=== PATIENT | female | born 2000 | race Caucasian/White ===

== ENCOUNTER 2022-02-23 07:05 | Emergency (ER) | payer OTHER ==
[~2022-02-23] VITALS: Ht 180 cm; Wt 165.0 kg
[2022-02-23 07:49] LABS: BASOPHILS # (AUTO) 0.1 10^3/uL (0.0-0.1); BASOPHILS % (AUTO) 1 % (0-10); EOSINOPHILS # (AUTO) 0.2 10^3/uL (0.0-0.3); EOSINOPHILS % (AUTO) 2 % (0-10); HEMATOCRIT 39 % (35-52); LYMPHOCYTES # (AUTO) 2.2 10^3/uL (1.0-4.0); LYMPHOCYTES % (AUTO) 22 % (12-44); MEAN CORPUSCULAR HEMOGLOBIN 25 pg (25-34); MEAN CORPUSCULAR HGB CONC 31 g/dL (32-36); MEAN CORPUSCULAR VOLUME 81 fL (80-99); MEAN PLATELET VOLUME 9.6 fL (9.0-12.2); MONOCYTES % (AUTO) 10 % (0-12); NEUTROPHILS # (AUTO) 6.6 10^3/uL (1.8-7.8); NEUTROPHILS % (AUTO) 65 % (42-75); PLATELET COUNT 348 10^3/uL (130-400); WHITE BLOOD COUNT 10.1 10^3/uL (4.3-11.0)
[2022-02-23 07:52] LABS: BILIRUBIN,URINE NEGATIVE (NEGATIVE); CLARITY,URINE CLEAR; COLOR,URINE YELLOW; GLUCOSE, URINE (UA) NEGATIVE (NEGATIVE); KETONES,URINE NEGATIVE (NEGATIVE); LEUKOCYTE ESTERASE ,URINE 1+ (NEGATIVE); NITRITE,URINE POSITIVE (NEGATIVE); PH,URINE 5.5 (5-9); PROTEIN,URINE TRACE (NEGATIVE)
[2022-02-23 07:55] LABS: ALBUMIN 4.1 GM/DL (3.2-4.5)
[2022-02-23 07:56] LABS: CALCIUM 9.3 MG/DL (8.5-10.1)
[2022-02-23 07:57] LABS: TOTAL PROTEIN 7.2 GM/DL (6.4-8.2)
[2022-02-23 07:59] LABS: BILIRUBIN,TOTAL 0.2 MG/DL (0.1-1.0)
[2022-02-23] MEDS ORDERED: KETOROLAC 30 MG/ML VIAL IVP ONE (08:00)
[2022-02-23] MEDS ORDERED: ONDANSETRON 4 MG/2 ML (SDV) Z0FRAN IVP ONE (08:00)
[2022-02-23 08:01] LABS: CREATININE SERUM 0.72 MG/DL (0.60-1.30)
[2022-02-23 08:13] LABS: BACTERIA,URINE MODERATE /HPF
[2022-02-23] MEDS ORDERED: cefTRIAXone 1 GM PRE-MIX 50 ML IV STA (08:18)
[2022-02-23] MEDS ORDERED: LACTATED RINGERS 1,000 ML IV ONE (08:30)
--- NOTE | 2022-02-23 08:46 | Diagnostic Imaging Report ---
EXAMINATION: CT abdomen and pelvis without contrast. TECHNIQUE: Multiple contiguous axial images were obtained through the abdomen and pelvis without the use of intravenous contrast. All CT scans use one or more of the following dose optimizing techniques: automated exposure control, MA and/or KvP adjustment based on patient size and exam type or iterative reconstruction. HISTORY: Flank pain, kidney stone suspected. COMPARISON: None available. FINDINGS: Limited views of the lower thorax are unremarkable. The liver is normal without focal lesion. There is no biliary ductal dilation. Gallbladder is normal. Pancreas is normal. Spleen is normal. Adrenal glands are normal. The kidneys are normal. There is no hydronephrosis. Urinary bladder is normal. There are no renal or ureteral stones. An intrauterine device is malpositioned in the lower uterine segment and extending into the cervix. Bowel is normal in caliber without obstruction or inflammation. No free fluid or air. No abdominal or pelvic lymphadenopathy. Aorta is normal in caliber without aneurysm. There are no suspicious osseus lesions. IMPRESSION: 1. No renal or ureteral stones. 2. Malpositioned intrauterine device in the lower uterine segment extending into the cervix. Dictated by: Dictated on workstation # [id number]
[2022-02-23] MEDS ORDERED: morphine INJ 10 MG/ML 1ML (SYR OR VIAL) IVP STA (08:50)
--- NOTE | 2022-02-23 08:57 | ED General ---
General Chief Complaint: Back Problems Stated Complaint: BACK PAIN Nursing Triage Note: PT AMB TO RM 06 W CO OF SUDDEN ONSET L FLANK PAIN 10/10. Source of Information: Patient Exam Limitations: No Limitations History of Present Illness Date Seen by Provider: Feb 23, 2022 Time Seen by Provider: 07:40 Initial Comments This 22-year-old young lady presents to the emergency room with complaints of pain in the left lower back and flank since last night. She took ibuprofen 600 mg at 0100 without significant relief. She reports her pain is 8/10 at rest and 10/10 with movement. She denies any injury. She has not noticed any urinary changes. She has had some associated nausea. LMP was February 06. She has history of nonalcoholic fatty liver disease but is otherwise relatively healthy. No history of kidney stones. Allergies and Home Medications Allergies Coded Allergies: No Known Drug Allergies (Unverified , 02/23/22) Patient Home Medication List Home Medication List Reviewed: Yes Cefdinir (Cefdinir) 300 Mg Capsule, 300 MG PO BID Prescribed by: ELMA TREJO on 02/23/22 0859 Hydrocodone/Acetaminophen (Hydrocodone-Acetamin 5-325 mg) 5 Mg-325 Mg Tablet, 1 TAB PO Q4H PRN for PAIN-MODERATE (5-7) Prescribed by: ELMA TREJO on 02/23/22 0900 Ondansetron (Ondansetron Odt) 4 Mg Tab.rapdis, 4 MG SL Q4H PRN for NAUSEA/VOMITING Prescribed by: ELMA TREJO on 02/23/22 0859 Review of Systems Review of Systems Constitutional: no symptoms reported EENTM: no symptoms reported Respiratory: no symptoms reported Cardiovascular: no symptoms reported Gastrointestinal: see HPI Genitourinary: no symptoms reported : No LMP: Feb 06, 2022 Musculoskeletal: no symptoms reported Skin: no symptoms reported Psychiatric/Neurological: No Symptoms Reported Hematologic/Lymphatic: No Symptoms Reported Immunological/Allergic: no symptoms reported Past Pdblday-Ftkynf-Izzlki Hx Patient Social History Tobacco Use?: Yes Tobacco type used: Cigarettes Smoking Status: Current Someday Smoker Substance use?: Yes Substance type: Marijuana Substance frequency: Once in a while Alcohol Use?: Yes Alcohol type: Beer Alcohol Frequency: Once in a while Pt feels they are or have been: No Past Medical History Surgery/Hospitalization HX: APPY Surgeries: Yes Appendectomy Respiratory: No Cardiac: No Neurological: No : No Last Menstrual Period: Feb 06, 2022 Reproductive Disorders: No Genitourinary: No Gastrointestinal: Yes Liver Disease/Jaundice (Nonalcoholic fatty liver disease) Musculoskeletal: No Endocrine: No HEENT: No Cancer: No Psychosocial: No Physical Exam Vital Signs Vital Signs - First Documented 02/23/22 07:15 Temp 36.3 Pulse 80 Resp 18 B/P (MAP) 166/94 (118) Pulse Ox 98 Capillary Refill : Less Than 3 Seconds Height, Weight, BMI Height: '" Weight: lbs. oz. kg; 50.00 BMI Method: General Appearance: No Apparent Distress, WD/WN, Obese HEENT: PERRL/EOMI, Normal ENT Inspection Neck: Normal Inspection Respiratory: Lungs Clear, Normal Breath Sounds, No Accessory Muscle Use Cardiovascular: Regular Rate, Rhythm, No Edema, No Murmur Gastrointestinal: Normal Bowel Sounds, Non Tender, Soft; No Distended Back: Normal Inspection, Other (Mild tenderness to palpation in the left lateral lower back and flank) Extremity: Normal Inspection, No Pedal Edema Neurologic/Psychiatric: Alert, Oriented x3, No Motor/Sensory Deficits, Normal Mood/Affect Skin: Normal Color, Warm/Dry Progress/Results/Core Measures Suspected Sepsis SIRS Temperature: Pulse: 80 Respiratory Rate: 18 Laboratory Tests 02/23/22 07:25: White Blood Count 10.1 Blood Pressure 166 /94 Mean: 118 Laboratory Tests 02/23/22 07:25: Creatinine 0.72, Platelet Count 348, Total Bilirubin 0.2 Results/Orders Lab Results Laboratory Tests Test 02/23/22 07:25 02/23/22 07:40 Range/Units White Blood Count 10.1 4.3-11.0 10^3/uL Red Blood Count 4.77 3.80-5.11 10^6/uL Hemoglobin 12.0 11.5-16.0 g/dL Hematocrit 39 35-52 % Mean Corpuscular Volume 81 80-99 fL Mean Corpuscular Hemoglobin 25 25-34 pg Mean Corpuscular Hemoglobin Concent 31 L 32-36 g/dL Red Cell Distribution Width 14.9 H 10.0-14.5 % Platelet Count 348 130-400 10^3/uL Mean Platelet Volume 9.6 9.0-12.2 fL Immature Granulocyte % (Auto) 0 % Neutrophils (%) (Auto) 65 42-75 % Lymphocytes (%) (Auto) 22 12-44 % Monocytes (%) (Auto) 10 0-12 % Eosinophils (%) (Auto) 2 0-10 % Basophils (%) (Auto) 1 0-10 % Neutrophils # (Auto) 6.6 1.8-7.8 10^3/uL Lymphocytes # (Auto) 2.2 1.0-4.0 10^3/uL Monocytes # (Auto) 1.0 0.0-1.0 10^3/uL Eosinophils # (Auto) 0.2 0.0-0.3 10^3/uL Basophils # (Auto) 0.1 0.0-0.1 10^3/uL Immature Granulocyte # (Auto) 0.0 0.0-0.1 10^3/uL Sodium Level 139 135-145 MMOL/L Potassium Level 4.0 3.6-5.0 MMOL/L Chloride Level 106 98-107 MMOL/L Carbon Dioxide Level 21 21-32 MMOL/L Anion Gap 12 5-14 MMOL/L Blood Urea Nitrogen 9 7-18 MG/DL Creatinine 0.72 0.60-1.30 MG/DL Estimat Glomerular Filtration Rate 122 BUN/Creatinine Ratio 13 Glucose Level 100 70-105 MG/DL Calcium Level 9.3 8.5-10.1 MG/DL Corrected Calcium 9.2 8.5-10.1 MG/DL Total Bilirubin 0.2 0.1-1.0 MG/DL Aspartate Amino Transf (AST/SGOT) 14 5-34 U/L Alanine Aminotransferase (ALT/SGPT) 26 0-55 U/L Alkaline Phosphatase 75 40-136 U/L C-Reactive Protein High Sensitivity 0.67 H 0.00-0.50 MG/DL Total Protein 7.2 6.4-8.2 GM/DL Albumin 4.1 3.2-4.5 GM/DL Lipase 15 8-78 U/L Serum Test, Qualitative NEGATIVE NEGATIVE Urine Color YELLOW Urine Clarity CLEAR Urine pH 5.5 5-9 Urine Specific [place] >=1.030 1.016-1.022 Urine Protein TRACE H NEGATIVE Urine Glucose (UA) NEGATIVE NEGATIVE Urine Ketones NEGATIVE NEGATIVE Urine Nitrite POSITIVE H NEGATIVE Urine Bilirubin NEGATIVE NEGATIVE Urine Urobilinogen 0.2 < = 1.0 MG/DL Urine Leukocyte Esterase 1+ H NEGATIVE Urine RBC (Auto) 3+ H NEGATIVE Urine RBC 5-10 H /HPF Urine WBC 10-25 H /HPF Urine Squamous Epithelial Cells 2-5 /HPF Urine Crystals NONE /LPF Urine Bacteria MODERATE H /HPF Urine Casts NONE /LPF Urine Mucus NEGATIVE /LPF Urine Culture Indicated YES My Orders Orders - ELMA DAVE MD Cbc With Automated Diff (02/23/22 07:41) Comprehensive Metabolic Panel (02/23/22 07:41) Hcg,Qualitative Serum (02/23/22 07:41) Ua Culture If Indicated (02/23/22 07:41) Ed Iv/Invasive Line Start (02/23/22 07:41) Ketorolac Injection (Toradol Injection) (02/23/22 08:00) Ondansetron Injection (Zofran Injectio (02/23/22 08:00) Hs C Reactive Protein (02/23/22 07:52) Lipase (02/23/22 07:52) Urine Culture (02/23/22 07:40) Ceftriaxone 1 Gm Pre-Mix (Rocephin 1 Gm (02/23/22 08:18) Lactated Ringers (Lr 1000 Ml Iv Solution (02/23/22 08:30) Ct Abd/Pelvis Wo(Kidney Stone) (02/23/22 08:19) Morphine Injection (Morphine Injection (02/23/22 08:50) Medications Given in ED Vital Signs/I&O 02/23/22 02/23/22 07:15 10:03 Temp 36.3 Pulse 80 68 Resp 18 18 B/P (MAP) 166/94 (118) 142/80 Pulse Ox 98 98 Capillary Refill : Less Than 3 Seconds Blood Pressure Mean: 118 Progress Note : Progress Note Nausea was treated with Zofran. Toradol had little effect on her pain. Morphine was given as a secondary pain medication. Urine demonstrated evidence of pyuria along with microscopic hematuria. Given the nature of her pain, there is concern about urinary tract infection associated with ureteral stone. CT scan was recommended. Patient elected to proceed with CT scan after discussing risks and benefits. CT revealed no acute abnormalities to explain her pain. Patient was treated for UTI with Rocephin and discharged with prescriptions. See discharge instructions for further discussion. Diagnostic Imaging Diagonstic Imaging: CT Plain Films/CT/US/NM/MRI: abdomen, pelvis Comments CT abdomen and pelvis viewed by me and report reviewed. See report below: NAME: ZENAIDA DUFF [facility] REC#: [id number] PT STATUS: REG ER : 2001 PHYSICIAN: ELMA DAVE MD ADMIT DATE: 02/23/22/ER Draft Date of Exam:02/23/22 CT ABD/PELVIS WO(KIDNEY STONE) EXAMINATION: CT abdomen and pelvis without contrast. TECHNIQUE: Multiple contiguous axial images were obtained through the abdomen and pelvis without the use of intravenous contrast. All CT scans use one or more of the following dose optimizing techniques: automated exposure control, MA and/or KvP adjustment based on patient size and exam type or iterative reconstruction. HISTORY: Flank pain, kidney stone suspected. COMPARISON: None available. FINDINGS: Limited views of the lower thorax are unremarkable. The liver is normal without focal lesion. There is no biliary ductal dilation. Gallbladder is normal. Pancreas is normal. Spleen is normal. Adrenal glands are normal. The kidneys are normal. There is no hydronephrosis. Urinary bladder is normal. There are no renal or ureteral stones. An intrauterine device is malpositioned in the lower uterine segment and extending into the cervix. Bowel is normal in caliber without obstruction or inflammation. No free fluid or air. No abdominal or pelvic lymphadenopathy. Aorta is normal in caliber without aneurysm. There are no suspicious osseus lesions. IMPRESSION: 1. No renal or ureteral stones. 2. Malpositioned intrauterine device in the lower uterine segment extending into the cervix. Dictated on workstation # [id number] Dict: 02/23/22 0839 Trans: 02/23/22 0845 [id number] Interpreted by: REBEL THOMPSON MD Departure Impression Primary Impression: Urinary tract infection Qualified Codes: N39.0 - Urinary tract infection, site not specified Additional Impressions: Low back pain Qualified Codes: M54.50 - Low back pain, unspecified Malpositioned intrauterine device Qualified Codes: T83.32XA - Displacement of intrauterine contraceptive device, initial encounter Disposition: 01 HOME, SELF-CARE Condition: Improved Departure-Patient Inst. Decision time for Depature: 08:53 Referrals: NO,LOCAL PHYSICIAN (PCP/Family) Primary Care Physician Patient Instructions: Low Back Pain ED, Urinary Tract Infection, Adult ED Add. Discharge Instructions: Drink plenty of clear liquids to stay well-hydrated. Start your antibiotics within 24 hours and complete the entire course as pre scribed. Use ibuprofen up to 600 mg every 6 hours as needed for primary pain control. Add hydrocodone as prescribed for pain not controlled by ibuprofen. Use Zofran (ondansetron) as prescribed for nausea and vomiting. Follow-up with your primary care provider soon as possible. Review urine culture results with your primary care provider. This should be resulted by end of the day on February 25. Your IUD appears malpositioned on the CT scan and appears to be moving into the cervix. For this reason you should use an alternative form of control until this can be evaluated by your women's health provider. Return to the emergency room if you have worsening condition despite following these instructions or if you develop new symptoms such as fever, vomiting, etc. All discharge instructions reviewed with patient and/or family. Voiced understanding. Scripts Hydrocodone/Acetaminophen (Hydrocodone-Acetamin 5-325 mg) 5 Mg-325 Mg Tablet 1 TAB PO Q4H PRN for PAIN-MODERATE (5-7), #8 TAB Prov: ELMA DAVE MD 02/23/22 Cefdinir (Cefdinir) 300 Mg Capsule 300 MG PO BID, #14 CAP 0 Refills Prov: ELMA DAVE MD 02/23/22 Ondansetron (Ondansetron Odt) 4 Mg Tab.rapdis 4 MG SL Q4H PRN for NAUSEA/VOMITING, #10 TAB Prov: ELMA DAVE MD 02/23/22 ELMA DAVE MD Feb 23, 2022 08:57
[2022-02-23] MEDS ORDERED: ACHD5005 PO (08:59)
[2022-02-23] MEDS ORDERED: ONDA4TAB11 SL (08:59)
[2022-02-23] MEDS ORDERED: CEFD300C3 PO (08:59)
[2022-02-23 10:03] VITALS: BP 142/80
== END 2022-02-23 10:04 | disposition home or self-care (01) ==
LOC: ER 07:09
DX: N39.0 Urinary tract infection, site not specified (principal); M54.50 Low back pain, unspecified; T83.32XA Displacement of intrauterine contraceptive device, initial encounter; E66.9 Obesity, unspecified; F17.210 Nicotine dependence, cigarettes, uncomplicated; Z68.43 Body mass index [BMI] 50.0-59.9, adult
CPT/HCPCS: 36415; 74176; 80053; 81000; 83690; 84703; 85025; 86141; 87077; 87088; 87186

== ENCOUNTER 2022-02-26 16:01 | Emergency (ER) | payer OTHER ==
[~2022-02-26] VITALS: Ht 180 cm; Wt 165.6 kg
[~2022-02-26 16:01] MED LIST: ACHD5005 PO; CEFD300C3 PO; ONDA4TAB11 SL
[2022-02-26 17:01] LABS: BILIRUBIN,URINE NEGATIVE (NEGATIVE); CLARITY,URINE CLEAR; COLOR,URINE YELLOW; GLUCOSE, URINE (UA) NEGATIVE (NEGATIVE); KETONES,URINE NEGATIVE (NEGATIVE); LEUKOCYTE ESTERASE ,URINE NEGATIVE (NEGATIVE); NITRITE,URINE NEGATIVE (NEGATIVE); PROTEIN,URINE NEGATIVE (NEGATIVE)
[2022-02-26 17:31] LABS: BACTERIA,URINE FEW /HPF; RBC,URINE RARE /HPF; WBC,URINE 0-2 /HPF
[2022-02-26 18:57] LABS: BASOPHILS % (AUTO) 1 % (0-10); EOSINOPHILS # (AUTO) 0.1 10^3/uL (0.0-0.3); EOSINOPHILS % (AUTO) 2 % (0-10); HEMATOCRIT 39 % (35-52); HEMOGLOBIN 12.3 g/dL (11.5-16.0); LYMPHOCYTES # (AUTO) 1.9 10^3/uL (1.0-4.0); LYMPHOCYTES % (AUTO) 29 % (12-44); MEAN CORPUSCULAR HEMOGLOBIN 25 pg (25-34); MEAN CORPUSCULAR HGB CONC 31 g/dL (32-36); MEAN CORPUSCULAR VOLUME 79 fL (80-99); MEAN PLATELET VOLUME 9.6 fL (9.0-12.2); MONOCYTES # (AUTO) 0.4 10^3/uL (0.0-1.0); MONOCYTES % (AUTO) 6 % (0-12); NEUTROPHILS # (AUTO) 4.1 10^3/uL (1.8-7.8); NEUTROPHILS % (AUTO) 62 % (42-75); PLATELET COUNT 371 10^3/uL (130-400); WHITE BLOOD COUNT 6.5 10^3/uL (4.3-11.0)
--- NOTE | 2022-02-26 18:59 | ED Abdominal Pain ---
General Chief Complaint: - Reproductive Stated Complaint: L SIDE LOWER BACK PAIN/VOMITING Nursing Triage Note: PT AMBULATE TO ROOM 06 WITH C/O BACK PAIN RELATED TO A UTI. PT REPORTS BEING SEEN IN THIS ED AND DX WITH UTI AND GIVEN ABX. PT STATES SHE IS NOT FEELING BETTER. (YAZMIN STEVENSON MED STUDENT) History of Present Illness Date Seen by Provider: Feb 26, 2022 Time Seen by Provider: 18:28 Initial Comments Zenaida is a 22 y/o F with PMHx of NAFLD returns to the ED after being discharged 2 days ago for UTI for continuing symptoms. Patient states symptoms onset with L flank pain and nausea for which she presented and was worked up with a benign CT, negative labwork and urine consistent with UTI. Patient was discharged on abx and pain control which she states has not helped at all. She states pain has now worsened and radiates to her R side as well as episodic vomiting over the last day. Reports an episode of syncope while walking into her bedroom after using the bathroom, noting some preceding dizziness but unsure when the episode occurred; states she was awoken by her boyfriend around 1 hour ago. Patient denies any SOB, changes in urination, discharge, fever, diarrhea, constipation, vision changes or weakness. (YAZMIN STEVENSON MED STUDENT) Initial Comments No fevers or chills. She has not been able to tolerate her hydrocodone because of her vomiting. She does not have any of her nausea. No other sick contacts. She had her appendix out but no other abdominal surgeries. She does not her primary care provider to follow-up with. No EGD or colonoscopy. Stools are normal, last stooling was today. (TRINIDAD CARPENTER) Allergies and Home Medications Allergies Coded Allergies: No Known Drug Allergies (Unverified , 02/23/22) Patient Home Medication List Home Medication List Reviewed: Yes (TRINIDAD CARPENTER) Cefdinir (Cefdinir) 300 Mg Capsule, 300 MG PO BID Prescribed by: ELMA TREJO on 02/23/22 0859 Hydrocodone/Acetaminophen (Hydrocodone-Acetamin 5-325 mg) 5 Mg-325 Mg Tablet, 1 TAB PO Q4H PRN for PAIN-MODERATE (5-7) Prescribed by: ELMA TREJO on 02/23/22 0900 Ondansetron (Ondansetron Odt) 4 Mg Tab.rapdis, 4 MG SL Q4H PRN for NAUSEA/VOMITING Prescribed by: ELMA TREJO on 02/23/22 0881 Ondansetron (Ondansetron Odt) 4 Mg Tab.rapdis, 4-8 MG PO Q6H PRN for NAUSEA/VOMITING Prescribed by: TRINIDAD CARPENTER on 02/26/22 0308 Review of Systems Review of Systems Constitutional: dizziness (resolved); No fever EENTM: No Blurred Vision, No Double Vision Respiratory: Denies Cough, Denies Shortness of Air Cardiovascular: Lightheadedness, Syncope Gastrointestinal: Abdominal Pain (generalized, mild); Denies Constipated, Denies Diarrhea; Nausea, Vomiting Genitourinary: Denies Burning, Denies Discharge; Flank Pain (L side) Musculoskeletal: No joint pain, No joint swelling Skin: No change in color, No dryness Psychiatric/Neurological: Denies Anxiety, Denies Depressed Endocrine: Denies Excessive Sweating, Denies Flushing (YAZMIN STEVENSON STUDENT) All Other Systems Reviewed Negative Unless Noted: Yes (TRINIDAD CARPENTER) Past Ixqdxlz-Stukzj-Vronvq Hx Patient Social History Tobacco Use?: No Smoking Status: Never a Smoker Smokeless Tobacco Frequency: Never a User Use of E-Cig and/or Vaping dev: Yes E-Cig or Vaping type used: Marijuana Use of E-Cig and/or Vaping Eric: Light User Substance use?: No Alcohol Use?: No Pt feels they are or have been: No (YAZMIN STEVENSON STUDENT) Tobacco Use?: No Use of E-Cig and/or Vaping dev: Yes E-Cig or Vaping type used: Nicotine Substance use?: No Alcohol Use?: Yes Alcohol type: Beer Alcohol Frequency: Rarely (TRINIDAD CARPENTER) Immunizations Up To Date First/Initial COVID19 Vaccinat: 06/18/21 Second COVID19 Vaccination Peter: 07/10/21 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: [employer] (YAZMIN STEVENSON STUDENT) Past Medical History Surgery/Hospitalization HX: APPY Surgeries: Yes Appendectomy Respiratory: No Cardiac: No Neurological: No Reproductive Disorders: No Genitourinary: No Gastrointestinal: Yes Liver Disease/Jaundice Musculoskeletal: No Endocrine: No HEENT: No Cancer: No Psychosocial: No (GRAHAM,YAZMIN [employer] STUDENT) Physical Exam Vital Signs Vital Signs - First Documented 02/26/22 02/26/22 16:19 19:00 Temp 36.2 Pulse 75 Resp 15 B/P (MAP) 148/91 (110) Pulse Ox 99 O2 Delivery Room Air (TRINIDAD CARPENTER) Vital Signs Capillary Refill : Less Than 3 Seconds (GRAHAM,YAZMIN MED STUDENT) Height/Weight/BMI Height: '" Weight: lbs. oz. kg; 51.00 BMI Method: General Appearance: WD/WN, obese HEENT: PERRL/EOMI, normal ENT inspection; No photophobia, No pharyngeal erythema Neck: non-tender, full range of motion Respiratory: chest non-tender, lungs clear, normal breath sounds, no respiratory distress, no accessory muscle use Cardiovascular: normal peripheral pulses, regular rate, rhythm, no murmur Peripheral Pulses: 2+ Carotid (R), 2+ Carotid (L), 2+ Radial Pulses (R), 2+ Radial Pulses (L) Gastrointestinal: normal bowel sounds, soft, no pulsatile mass; No guarding, No rebound; tenderness (mild, generalized) Extremities: normal range of motion, non-tender, normal inspection, no pedal edema, no calf tenderness Back: normal inspection, CVA tenderness (L) 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 as tested, no motor/sensory deficits, normal mood/affect; No aphasia, No EOM palsy, No facial droop, No motor weakness, No sensory deficit Skin: normal color, warm/dry (YAZMIN STEVENSON MED STUDENT) Skin: other (No left flank rash) (TRINIDAD CARPENTER) Progress/Results/Core Measures Results/Orders Lab Results Laboratory Tests Test 02/26/22 16:51 02/26/22 18:47 Range/Units Urine Color YELLOW Urine Clarity CLEAR Urine pH 8.0 5-9 Urine Specific [place] 1.020 1.016-1.022 Urine Protein NEGATIVE NEGATIVE Urine Glucose (UA) NEGATIVE NEGATIVE Urine Ketones NEGATIVE NEGATIVE Urine Nitrite NEGATIVE NEGATIVE Urine Bilirubin NEGATIVE NEGATIVE Urine Urobilinogen 0.2 < = 1.0 MG/DL Urine Leukocyte Esterase NEGATIVE NEGATIVE Urine RBC (Auto) NEGATIVE NEGATIVE Urine RBC RARE /HPF Urine WBC 0-2 /HPF Urine Squamous Epithelial Cells 2-5 /HPF Urine Crystals NONE /LPF Urine Bacteria FEW H /HPF Urine Casts NONE /LPF Urine Mucus SMALL H /LPF Urine Culture Indicated YES White Blood Count 6.5 4.3-11.0 10^3/uL Red Blood Count 4.95 3.80-5.11 10^6/uL Hemoglobin 12.3 11.5-16.0 g/dL Hematocrit 39 35-52 % Mean Corpuscular Volume 79 L 80-99 fL Mean Corpuscular Hemoglobin 25 25-34 pg Mean Corpuscular Hemoglobin Concent 31 L 32-36 g/dL Red Cell Distribution Width 14.6 H 10.0-14.5 % Platelet Count 371 130-400 10^3/uL Mean Platelet Volume 9.6 9.0-12.2 fL Immature Granulocyte % (Auto) 0 % Neutrophils (%) (Auto) 62 42-75 % Lymphocytes (%) (Auto) 29 12-44 % Monocytes (%) (Auto) 6 0-12 % Eosinophils (%) (Auto) 2 0-10 % Basophils (%) (Auto) 1 0-10 % Neutrophils # (Auto) 4.1 1.8-7.8 10^3/uL Lymphocytes # (Auto) 1.9 1.0-4.0 10^3/uL Monocytes # (Auto) 0.4 0.0-1.0 10^3/uL Eosinophils # (Auto) 0.1 0.0-0.3 10^3/uL Basophils # (Auto) 0.0 0.0-0.1 10^3/uL Immature Granulocyte # (Auto) 0.0 0.0-0.1 10^3/uL Sodium Level 136 135-145 MMOL/L Potassium Level 4.1 3.6-5.0 MMOL/L Chloride Level 105 98-107 MMOL/L Carbon Dioxide Level 22 21-32 MMOL/L Anion Gap 9 5-14 MMOL/L Blood Urea Nitrogen 8 7-18 MG/DL Creatinine 0.70 0.60-1.30 MG/DL Estimat Glomerular Filtration Rate 126 BUN/Creatinine Ratio 11 Glucose Level 92 70-105 MG/DL Calcium Level 9.8 8.5-10.1 MG/DL Corrected Calcium 9.6 8.5-10.1 MG/DL Total Bilirubin 0.3 0.1-1.0 MG/DL Aspartate Amino Transf (AST/SGOT) 16 5-34 U/L Alanine Aminotransferase (ALT/SGPT) 21 0-55 U/L Alkaline Phosphatase 75 40-136 U/L Total Creatine Kinase 57 29-168 U/L Troponin I < 0.028 <0.028 NG/ML C-Reactive Protein High Sensitivity 0.48 0.00-0.50 MG/DL Total Protein 7.7 6.4-8.2 GM/DL Albumin 4.3 3.2-4.5 GM/DL Lipase 11 8-78 U/L (TRINIDAD CARPENTER) My Orders Orders - TRINIDAD CARPENTER Ekg Tracing (02/26/22 18:36) Orthostatic Vital Signs (Adult (02/26/22 18:36) Cbc With Automated Diff (02/26/22 18:36) Comprehensive Metabolic Panel (02/26/22 18:36) Hs C Reactive Protein (02/26/22 18:36) Troponin I Simran (02/26/22 18:36) Chest 1 View, Ap/Pa Only (02/26/22 18:36) Lipase (02/26/22 18:36) Ed Iv/Invasive Line Start (02/26/22 19:14) Lactated Ringers (Lr 1000 Ml Iv Solution (02/26/22 19:15) Ondansetron Injection (Zofran Injectio (02/26/22 19:15) Fentanyl Inj (Sublimaze Injection) (02/26/22 19:15) Pantoprazole Injection (Protonix Injecti (02/26/22 19:15) Creatine Kinase (02/26/22 19:14) Ct Abdomen/Pelvis W (02/26/22 19:20) Orthostatic Vital Signs (Adult (02/26/22 19:20) Iohexol Injection (Omnipaque 350 Mg/Ml 1 (02/26/22 19:45) Received Contrast (Hold Metformin- Contr (02/26/22 19:45) Ns (Ivpb) (Sodium Chloride 0.9% Ivpb Bag (02/26/22 19:45) (TRINIDAD CARPENTER) Medications Given in ED Current Medications Medications Dose Ordered Sig/Lulu Route Start Time Stop Time Status Last Admin Dose Admin Fentanyl Citrate 50 mcg ONCE ONCE IVP 02/26/22 19:15 02/26/22 19:16 DC 02/26/22 19:26 50 MCG Iohexol 100 ml ONCE ONCE IV 02/26/22 19:45 02/26/22 19:46 DC 02/26/22 19:36 100 ML Lactated Ringer's 1,000 ml @ 0 mls/hr Q0M ONCE IV 02/26/22 19:15 02/26/22 19:16 DC 02/26/22 19:27 0 MLS/HR Ondansetron HCl 8 mg ONCE ONCE IVP 02/26/22 19:15 02/26/22 19:16 DC 02/26/22 19:26 8 MG Pantoprazole 40 mg ONCE ONCE IV 02/26/22 19:15 02/26/22 19:16 DC 02/26/22 19:26 40 MG Sodium Chloride 100 ml ONCE ONCE IV 02/26/22 19:45 02/26/22 19:46 DC 02/26/22 19:36 80 ML (TRINIDAD CARPENTER) Vital Signs/I&O 02/26/22 02/26/22 02/26/22 16:19 19:00 22:03 Temp 36.2 36.5 Pulse 75 86 84 Resp 15 14 16 B/P (MAP) 148/91 (110) 162/90 154/90 Pulse Ox 99 99 O2 Delivery Room Air Room Air Room Air 02/27/22 00:00 Intake Total 1000 ml Balance 1000 ml (TRINIDAD CARPENTER) Blood Pressure Mean: 110 Progress Progress Note #1: Time: 19:18 Progress Note I attest that I saw this patient alongside the medical student and agree with his documented history, physical exam and review of systems except as otherwise noted. No evidence of shingles. She does have a Celaya's positive sign. We did review her previous CT which did not reveal any pathology other than a malpositioned IUD which is unlikely to be the source of her symptoms today. Her urinalysis was convincing of UTI from a couple days ago. It has cleared today despite antibiotics but her symptoms are not improved. We will get a CT with IV contrast to evaluate her gallbladder. Fentanyl and Zofran and a liter of fluids. Less likely would be a myocarditis or some other reason to explain her syncopal episode. Vasovagal due to gallbladder or similar symptoms as possible. Pantoprazole for possibility of PUD. Progress Note #2: Time: 21:53 Progress Note Patient is resting comfortably has no signs of distress and we have exhausted a work-up looking for emergent dangerous pathology. She has had normal telemetry on the monitor. We have suggested to her to follow-up with a dismantler for her syncopal work-up to consider a paroxysmal dysrhythmia as well as to establish care with a primary care doctor to help figure out if there is persistent pain even after she completes her antibiotics. (TRINIDAD CARPENTER) Initial ECG Impression Date: Feb 26, 2022 Initial ECG Impression Time: 18:53 Initial ECG Rate: 66 Initial ECG Rhythm: Normal Sinus Initial ECG Intervals: Normal Initial ECG Impression: Normal Comment Normal sinus rhythm without clinically relevant ST elevation or depression (TRINIDAD CARPENTER) Diagnostic Imaging Diagonstic Imaging: Xray Plain Films/CT/US/NM/MRI: chest Comments [facility] [place], [place] NAME: ZENAIDA DUFF MED REC#: [id number] PT STATUS: REG ER : 2000 PHYSICIAN: TRINIDAD CARPENTER MD ADMIT DATE: 02/26/22/ER Draft Date of Exam:02/26/22 CHEST 1 VIEW, AP/PA ONLY INDICATION: Back pain related to urinary tract infection.. TECHNIQUE: Single view chest 7:08 PM. CORRELATION STUDY: None FINDINGS: The heart size, mediastinal configuration and pulmonary vascularity are within normal limits. The lungs are clear with no consolidating infiltrate. There is no significant effusion or pneumothorax. IMPRESSION: 1. Negative appearing single view chest. Dictated on workstation # [id number] Dict: 02/26/221911 Trans: 02/26/221912 DO [id number] Interpreted by: MORRIS EARL DO Electronically signed by: Reviewed: Reviewed by Me Diagonstic Imaging: CT Plain Films/CT/US/NM/MRI: abdomen, pelvis Comments [facility] [place] [place] NAME: ZENAIDA DUFF MED REC#: [id number] PT STATUS: REG ER : 2000 PHYSICIAN: TRINIDAD CARPENTER MD ADMIT DATE: 02/26/22/ER Draft Date of Exam:02/26/22 CT ABDOMEN/PELVIS W PROCEDURE: CT abdomen and pelvis with contrast. TECHNIQUE: Multiple contiguous axial images were obtained through the abdomen and pelvis after administration of intravenous contrast. Auto Exposure Controls were utilized during the CT exam to meet ALARA standards for radiation dose reduction. All CT scans use one or more of the following dose optimizing techniques: automated exposure control, MA and/or KvP adjustment based on patient size and exam type or iterative reconstruction. INDICATION: 22-year-old female, back pain related to urinary tract infection. No improvement post antibiotic. CORRELATION STUDY: CT abdomen and pelvis 02/23/2022 FINDINGS: LOWER THORAX: Clear. LIVER: Borderline enlarged, 20 cm with mild fatty infiltration. GALLBLADDER: Present and unremarkable. No bile duct dilatation. SPLEEN: Borderline enlarged at approximately 20 cm in length. PANCREAS: Unremarkable. ADRENAL GLANDS: Unremarkable. KIDNEYS: Normal configuration. No calcification or obstruction. ABDOMINAL AORTA: Unremarkable, nonaneurysmal. Retroaortic left renal vein. A few shotty aortocaval lymph nodes. GASTROINTESTINAL TRACT: No obstruction or inflammation. There appears to be likely prior appendectomy. No abdominal ascites and/or free air. URINARY BLADDER: Unremarkable. REPRODUCTIVE: Intrauterine conceptive device is malpositioned, positioned in the lower uterine segment and extending into the cervix. Peripheral extension of the arms are also present. OSSEOUS STRUCTURES: No acute abnormality. OTHER: None. IMPRESSION: 1. Malpositioned intrauterine conceptive device, positioned in the lower uterine segment and cervix with peripheral extension of the limbs. 2. Kidneys, ureters and urinary bladder appearing unremarkable. 3. Mild hepatomegaly with borderline splenomegaly. Dictated on workstation # [id number] Dict: 02/26/221944 Trans: 02/26/222006 CHRIS [id number] Interpreted by: MORRIS EARL DO Electronically signed by: Reviewed: Reviewed by Me (TRINIDAD CARPENTER) Departure Impression Primary Impression: Syncope and collapse Additional Impressions: Abdominal pain Qualified Codes: R10.84 - Generalized abdominal pain Urinary tract infection Qualified Codes: N30.00 - Acute cystitis without hematuria Disposition: 01 HOME, SELF-CARE Condition: Stable Departure-Patient Inst. Decision time for Depature: 21:55 (TRINIDAD CARPENTER) Referrals: ARAMIS SHAFFER MD NO,LOCAL PHYSICIAN (PCP) Primary Care Physician Patient Instructions: Urinary Tract Infection, Adult (DC), Syncope (Fainting) (DC) Add. Discharge Instructions: You do have a bladder infection and perhaps that is the source of your pain as well as your passing out, syncope. Drink plenty of fluids over the next several days. Continue to take your antibiotics to completion. Tylenol, Motrin, topical creams, heating pads as necessary for pain. Hydrocodone may contribute to passing out. Zofran 1 tablet every 6 hours as needed for nausea or vomiting. If you continue to have passing out episodes then it would be bae to follow-up with the dismantler, Dr. Shaffer by calling for an appointment in the next 1 to 2 weeks. If you continue to have pain or issues despite finishing the antibiotics then you need to establish care with a primary care doctor to continue the work-up and look for the source of your symptoms. All discharge instructions reviewed with patient and/or family. Voiced understanding. Scripts Ondansetron (Ondansetron Odt) 4 Mg Tab.rapdis 4-8 MG PO Q6H PRN for NAUSEA/VOMITING, #16 TAB 0 Refills Prov: TRINIDAD CARPENTER 02/26/22 Copy Copies To 1: ARAMIS SHAFFER MD, MATTHEW MED STUDENT Feb 26, 2022 18:59 TRINIDAD CARPENTER Feb 26, 2022 19:20
--- NOTE | 2022-02-26 19:13 | Diagnostic Imaging Report ---
INDICATION: Back pain related to urinary tract infection.. TECHNIQUE: Single view chest 7:08 PM. CORRELATION STUDY: None FINDINGS: The heart size, mediastinal configuration and pulmonary vascularity are within normal limits. The lungs are clear with no consolidating infiltrate. There is no significant effusion or pneumothorax. IMPRESSION: 1. Negative appearing single view chest. Dictated by: Dictated on workstation # [id number]
[2022-02-26 19:14] LABS: ALANINE AMINOTRANSFERASE 21 U/L (0-55); ALBUMIN 4.3 GM/DL (3.2-4.5); ALKALINE PHOSPHATASE 75 U/L (40-136); BILIRUBIN,TOTAL 0.3 MG/DL (0.1-1.0); BUN/CREATININE RATIO 11; CALCIUM 9.8 MG/DL (8.5-10.1); CARBON DIOXIDE 22 MMOL/L (21-32); CHLORIDE 105 MMOL/L (98-107); GFR ESTIMATED 126; GLUCOSE 92 MG/DL (70-105); LIPASE 11 U/L (8-78); POTASSIUM 4.1 MMOL/L (3.6-5.0); SODIUM 136 MMOL/L (135-145); TOTAL PROTEIN 7.7 GM/DL (6.4-8.2)
[2022-02-26] MEDS ORDERED: ONDANSETRON 4 MG/2 ML (SDV) Z0FRAN IVP ONE (19:15)
[2022-02-26] MEDS ORDERED: LACTATED RINGERS 1,000 ML IV ONE (19:15)
[2022-02-26] MEDS ORDERED: PANTOPRAZOLE 40 MG (PROTONIX) VIAL IV ONE (19:15)
[2022-02-26] MEDS ORDERED: fentaNYL INJ 100 MCG/2 ML AMP IVP ONE (19:15)
[2022-02-26] MEDS ORDERED: NS 100 ML (IVPB) BAG IV ONE (19:45)
[2022-02-26] MEDS ORDERED: HOLD METFORMIN - RECEIVED CONTRAST 20 ML VIAL IV SCH (19:45)
[2022-02-26] MEDS ORDERED: IOHEXOL 350 MG/ML 100 ML (OMNIPAQUE 350) VIAL IV ONE (19:45)
--- NOTE | 2022-02-26 20:08 | Diagnostic Imaging Report ---
PROCEDURE: CT abdomen and pelvis with contrast. TECHNIQUE: Multiple contiguous axial images were obtained through the abdomen and pelvis after administration of intravenous contrast. Auto Exposure Controls were utilized during the CT exam to meet ALARA standards for radiation dose reduction. All CT scans use one or more of the following dose optimizing techniques: automated exposure control, MA and/or KvP adjustment based on patient size and exam type or iterative reconstruction. INDICATION: 22-year-old female, back pain related to urinary tract infection. No improvement post antibiotic. CORRELATION STUDY: CT abdomen and pelvis 02/23/2022 FINDINGS: LOWER THORAX: Clear. LIVER: Borderline enlarged, 20 cm with mild fatty infiltration. GALLBLADDER: Present and unremarkable. No bile duct dilatation. SPLEEN: Borderline enlarged at approximately 20 cm in length. PANCREAS: Unremarkable. ADRENAL GLANDS: Unremarkable. KIDNEYS: Normal configuration. No calcification or obstruction. ABDOMINAL AORTA: Unremarkable, nonaneurysmal. Retroaortic left renal vein. A few shotty aortocaval lymph nodes. GASTROINTESTINAL TRACT: No obstruction or inflammation. There appears to be likely prior appendectomy. No abdominal ascites and/or free air. URINARY BLADDER: Unremarkable. REPRODUCTIVE: Intrauterine conceptive device is malpositioned, positioned in the lower uterine segment and extending into the cervix. Peripheral extension of the arms are also present. OSSEOUS STRUCTURES: No acute abnormality. OTHER: None. IMPRESSION: 1. Malpositioned intrauterine conceptive device, positioned in the lower uterine segment and cervix with peripheral extension of the limbs. 2. Kidneys, ureters and urinary bladder appearing unremarkable. 3. Mild hepatomegaly with borderline splenomegaly. Dictated by: Dictated on workstation # [id number]
[2022-02-26] MEDS ORDERED: ONDA4TAB11 PO (21:57)
[2022-02-26 22:03] VITALS: BP 154/90
== END 2022-02-26 22:06 | disposition home or self-care (01) ==
LOC: EDUNIT# 16:01 → ER 16:03
DX: R55 Syncope and collapse (principal); N30.00 Acute cystitis without hematuria; F17.290 Nicotine dependence, other tobacco product, uncomplicated
CPT/HCPCS: 36415; 71045; 74177; 80053; 81000; 82550; 83690; 84484; 84703; 85025; 86141; 87088; 93005

== ENCOUNTER 2022-05-13 07:17 | Emergency (ER) | payer OTHER ==
[~2022-05-13] VITALS: Ht 177 cm; Wt 170.0 kg
[~2022-05-13 07:17] MED LIST changes: +ONDA4TAB11 PO
[2022-05-13] MEDS ORDERED: PROMETHAZINE INJ 25 MG/ML (PHENERGAN) AMP IM ONE (07:30)
[2022-05-13] MEDS ORDERED: KETOROLAC 60 MG/2 ML VIAL IM ONE (07:30)
[2022-05-13] MEDS ORDERED: diphenhydrAMINE 25 MG TAB (BENADRYL) PO ONE (07:30)
[2022-05-13] MEDS ORDERED: PROM25TA14 PO (07:38)
--- NOTE | 2022-05-13 07:38 | ED Headache ---
General Stated Complaint: MIGRAINE X 4 DAYS Source: patient Exam Limitations: no limitations History of Present Illness Date Seen by Provider: May 13, 2022 Time Seen by Provider: 07:19 Initial Comments Patient to the ER by private conveyance for chief complaint has had a migraine headache for the past 4 days. She has a history of migraines but does not take anything for prevention. She has been using Tylenol and ibuprofen without success. She is having some nausea and had an episode of emesis this morning. No hematemesis. No diarrhea constipation fevers chills sore throat runny nose congestion or earaches. No visual disturbances, weakness numbness or other neurologic complaints. She is endorsing photophobia. She is on an IUD with her last menstrual period 1 week ago Allergies and Home Medications Allergies Coded Allergies: No Known Drug Allergies (Unverified , 02/23/22) Patient Home Medication List Home Medication List Reviewed: Yes Cefdinir (Cefdinir) 300 Mg Capsule, 300 MG PO BID Prescribed by: ELMA TREJO on 02/23/22 0859 Hydrocodone/Acetaminophen (Hydrocodone-Acetamin 5-325 mg) 5 Mg-325 Mg Tablet, 1 TAB PO Q4H PRN for PAIN-MODERATE (5-7) Prescribed by: ELMA TREJO on 02/23/22 0900 Ondansetron (Ondansetron Odt) 4 Mg Tab.rapdis, 4 MG SL Q4H PRN for NAUSEA/VOMITING Prescribed by: ELMA TREJO on 02/23/22 0859 Ondansetron (Ondansetron Odt) 4 Mg Tab.rapdis, 4-8 MG PO Q6H PRN for NAUSEA/VOMITING Prescribed by: TRINIDAD CARPENTER on 02/26/222156 Review of Systems Review of Systems Constitutional: No chills, No fever, No malaise Eyes: Denies Blindness, Denies Blurred Vision Ears, Nose, Mouth, Throat: denies ear pain, denies nose pain Respiratory: No cough, No short of breath Cardiovascular: No edema, No Hx of Intervention, No palpitations Gastrointestinal: No abdominal pain, No constipation, No diarrhea; nausea, vomiting Genitourinary: No discharge, No dysuria Musculoskeletal: No back pain, No joint pain All Other Systems Reviewed Negative Unless Noted: Yes Past Uujscbi-Oyrmii-Dxutjp Hx Patient Social History Tobacco Use?: No Use of E-Cig and/or Vaping dev: Yes E-Cig or Vaping type used: Nicotine Immunizations Up To Date First/Initial COVID19 Vaccinat: 06/18/21 Second COVID19 Vaccination Peter: 07/10/21 Past Medical History Surgery/Hospitalization HX: APPY Surgeries: Yes Appendectomy Respiratory: No Cardiac: No Neurological: No Reproductive Disorders: No Genitourinary: No Gastrointestinal: Yes Liver Disease/Jaundice Musculoskeletal: No Endocrine: No HEENT: No Cancer: No Psychosocial: No Physical Exam Vital Signs Capillary Refill : Height, Weight, BMI Height: '" Weight: lbs. oz. kg; 51.00 BMI Method: General Appearance: WD/WN, no apparent distress HEENT: PERRL/EOMI, normal ENT inspection, TMs normal, pharynx normal (Mild injection in the retropharynx without swollen tongue or exudate); No tonsillar exudate Neck: non-tender, full range of motion, supple, normal inspection Cardiovascular: normal peripheral pulses, regular rate, rhythm Respiratory: lungs clear, normal breath sounds, no respiratory distress, no accessory muscle use Psychiatric: alert, oriented x 3 Crainal Nerves: normal hearing, normal speech, PERRL Coordination/Gait: normal gait Motor/Sensory: no motor deficit, no sensory deficit Skin: normal color, warm/dry Progress/Results/Core Measures Progress Progress Note : Time: 07:36 Progress Note Toradol 60 mg IM, Phenergan 25 mg IM and Benadryl 50 mg p.o. Go home and get some sleep. No red flags. Return precautions given. Departure Impression Primary Impression: Migraine headache without aura Qualified Codes: G43.001 - Migraine without aura, not intractable, with status migrainosus Disposition: HOME, SELF-CARE Condition: Stable Departure-Patient Inst. Decision time for Depature: 07:37 Referrals: NO,LOCAL PHYSICIAN (PCP/Family) Primary Care Physician Patient Instructions: Migraines (DC), How to Keep Track of Your Headaches, Home Headache Remedies Add. Discharge Instructions: Please review the handouts for advised on how to manage headaches. Log your headaches and take this information with you to your primary care doctor to discuss whether preventative type medications might be beneficial. Tylenol 1000 mg every 8 hours as needed for pain. Ibuprofen 800 mg every 8 hours as needed for pain. Drink lots of fluids such as Gatorade, Powerade, water etc. Phenergan 1 tablet every 6 hours as needed for nausea and/or headache. Sometimes Phenergan can cause feelings of restlessness which will be improved by taking 1 or 2 tablets of Benadryl with Phenergan. Return to the ER for intractable symptoms such as dehydration. Scripts Promethazine HCl (Promethazine Tablet) 25 Mg Tablet 25 MG PO Q6H PRN for NAUSEA/VOMITING, #8 TAB 0 Refills Prov: TRINIDAD CARPENTER 05/13/22 Work/School Note: Work Release Form Date Seen in the Emergency Department: May 13, 2022 Return to Work: May 14, 2022 Restrictions: No Restrictions TRINIDAD CARPENTER May 13, 2022 07:38
[2022-05-13 08:16] VITALS: BP 108/74
== END 2022-05-13 08:16 | disposition home or self-care (01) ==
LOC: EDUNIT# 07:17 → ER 07:19
DX: G43.001 Migraine without aura, not intractable, with status migrainosus (principal); F17.210 Nicotine dependence, cigarettes, uncomplicated
CPT/HCPCS: 99284

== ENCOUNTER 2022-09-27 06:40 | Emergency (ER) | payer OTHER ==
[~2022-09-27 06:40] MED LIST changes: +PROM25TA14 PO
[2022-09-27] MEDS ORDERED: ONDANSETRON 4 MG (ZOFRAN) ORAL DISSOLVE TAB SL STA (06:54)
[2022-09-27] MEDS ORDERED: ANTACID SUSP 30 ML UDC (MYLANTA) PO ONE (07:00)
[2022-09-27] MEDS ORDERED: LIDOCAINE 2% VISCOUS 15 ML UDC PO ONE (07:00)
--- NOTE | 2022-09-27 07:21 | ED Chest Pain ---
General Chief Complaint: Chest Pain Stated Complaint: BACK PAIN - CHEST PAIN Nursing Triage Note: PT ARRIVAL TO ER VIA PRIVATE VEHICLE FROM HER PLACE OF WORK WITH COMPLAINT OF CHEST/BACK PAIN SINCE 399. PT STATES THAT SHE WAS AT WORK DOING LAUNDRY WHEN IT STARTED. PT STATES THAT SHE HAS HX OF BACK PAIN SO INITIALLY WASN'T CONCERNED. PT STATES THAT AROUND 399 THE PAIN INTENSIFIED AND STARTED HAVING PAIN IN CHEST. PAIN IS DESCRIBED BURNING PAIN. PAIN RATED AT 6/10. Source: patient Exam Limitations: no limitations History of Present Illness Date Seen by Provider: Sep 27, 2022 Time Seen by Provider: 06:46 Initial Comments This 22-year-old young lady presents to the emergency room with about 24 hours of mid back pain and chest tightness. The mid back pain started first and was relatively mild in nature. She went to work and symptoms seem to escalate from there. 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 She felt like her left arm was a bit numb. She denies any fever, cough, or chills. She has had "heartburn" for about 1 week. She reports no significant past medical history except for fatty liver disease. She has had no nausea, vomiting, or diarrhea. She denies as she has an IUD in place. She rates her pain at 6-7 out of 10. She has no abdominal tenderness but does have reproducible pain on palpation of the lower sternal region. Patient reports feeling stressed and exhausted from working 7 straight shifts. Allergies and Home Medications Allergies Coded Allergies: No Known Drug Allergies (Unverified , 02/23/22) Patient Home Medication List Home Medication List Reviewed: Yes Cefdinir (Cefdinir) 300 Mg Capsule, 300 MG PO BID Prescribed by: ELMA TREJO on 02/23/22 0859 Cyclobenzaprine HCl (Cyclobenzaprine HCl) 10 Mg Tablet, 10 MG PO HS PRN for SPASMS Prescribed by: ELMA TREJO on 09/27/22 1119 Hydrocodone/Acetaminophen (Hydrocodone-Acetamin 5-325 mg) 5 Mg-325 Mg Tablet, 1 TAB PO Q4H PRN for PAIN-MODERATE (5-7) Prescribed by: ELMA TREJO on 02/23/22 0900 Ondansetron (Ondansetron Odt) 4 Mg Tab.rapdis, 4 MG SL Q4H PRN for NAUSEA/VOMITING Prescribed by: ELMA TREJO on 02/23/22 0859 Ondansetron (Ondansetron Odt) 4 Mg Tab.rapdis, 4-8 MG PO Q6H PRN for NAUSEA/VOMITING Prescribed by: TRINIDAD CARPENTER on 02/26/22 2157 Promethazine HCl (Promethazine Tablet) 25 Mg Tablet, 25 MG PO Q6H PRN for NAUSEA/VOMITING Prescribed by: TRINIDAD CARPENTER on 05/13/22 0738 Review of Systems Review of Systems Constitutional: no symptoms reported EENTM: No Symptoms Reported Respiratory: See HPI Cardiovascular: See HPI Gastrointestinal: See HPI Genitourinary: No Symptoms Reported Musculoskeletal: see HPI Skin: no symptoms reported Psychiatric/Neurological: No Symptoms Reported Endocrine: No Symptoms Reported Hematologic/Lymphatic: No Symptoms Reported Past Vqlanhy-Zerfqd-Gpkvob Hx Patient Social History Tobacco Use?: No Use of E-Cig and/or Vaping dev: Yes E-Cig or Vaping type used: Nicotine Substance use?: No Alcohol Use?: Yes Alcohol type: Beer, Hard Liquor, Wine Alcohol Frequency: Once in a while Pt feels they are or have been: No Immunizations Up To Date Influenza Vaccine Up-to-Date: Yes; Up-to-Date First/Initial COVID19 Vaccinat: 06/18/21 Second COVID19 Vaccination Peter: unknown Third COVID19 Vaccination Date: 06/18/21 COVID19 Vaccine Tube Cleaner: LAZARA Past Medical History Surgery/Hospitalization HX: APPY Surgeries: Yes Appendectomy Respiratory: No Cardiac: No Neurological: No : No Reproductive Disorders: No Genitourinary: No Gastrointestinal: Yes Liver Disease/Jaundice Musculoskeletal: No Endocrine: No HEENT: No Cancer: No Psychosocial: No Physical Exam Vital Signs Vital Signs - First Documented 09/27/22 06:46 Temp 36.7 Pulse 89 Resp 20 B/P (MAP) 164/97 (119) Pulse Ox 97 O2 Delivery Room Air Capillary Refill : Less Than 3 Seconds Height, Weight, BMI Height: '" Weight: lbs. oz. 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 Progress/Results/Core Measures Results/Orders Lab Results Laboratory Tests Test 09/27/22 08:51 Range/Units White Blood Count 7.8 4.3-11.0 10^3/uL Red Blood Count 4.48 3.80-5.11 10^6/uL Hemoglobin 11.7 11.5-16.0 g/dL Hematocrit 36 35-52 % Mean Corpuscular Volume 81 80-99 fL Mean Corpuscular Hemoglobin 26 25-34 pg Mean Corpuscular Hemoglobin Concent 32 32-36 g/dL Red Cell Distribution Width 14.8 H 10.0-14.5 % Platelet Count 350 130-400 10^3/uL Mean Platelet Volume 9.4 9.0-12.2 fL Immature Granulocyte % (Auto) 0 % Neutrophils (%) (Auto) 51 42-75 % Lymphocytes (%) (Auto) 37 12-44 % Monocytes (%) (Auto) 8 0-12 % Eosinophils (%) (Auto) 3 0-10 % Basophils (%) (Auto) 1 0-10 % Neutrophils # (Auto) 4.0 1.8-7.8 10^3/uL Lymphocytes # (Auto) 2.9 1.0-4.0 10^3/uL Monocytes # (Auto) 0.7 0.0-1.0 10^3/uL Eosinophils # (Auto) 0.2 0.0-0.3 10^3/uL Basophils # (Auto) 0.1 0.0-0.1 10^3/uL Immature Granulocyte # (Auto) 0.0 0.0-0.1 10^3/uL Prothrombin Time 13.2 12.2-14.7 SEC INR Comment 1.0 0.8-1.4 Activated Partial Thromboplast Time 31 24-35 SEC D-Dimer 0.51 H 0.00-0.49 UG/ML Sodium Level 140 135-145 MMOL/L Potassium Level 3.5 L 3.6-5.0 MMOL/L Chloride Level 106 98-107 MMOL/L Carbon Dioxide Level 24 21-32 MMOL/L Anion Gap 10 5-14 MMOL/L Blood Urea Nitrogen 11 7-18 MG/DL Creatinine 0.65 0.60-1.30 MG/DL Estimat Glomerular Filtration Rate 128 BUN/Creatinine Ratio 17 Glucose Level 93 70-105 MG/DL Calcium Level 9.3 8.5-10.1 MG/DL Corrected Calcium 9.4 8.5-10.1 MG/DL Magnesium Level 1.7 1.6-2.4 MG/DL Total Bilirubin 0.2 0.1-1.0 MG/DL Aspartate Amino Transf (AST/SGOT) 20 5-34 U/L Alanine Aminotransferase (ALT/SGPT) 24 0-55 U/L Alkaline Phosphatase 71 40-136 U/L Myoglobin 27.9 10.0-92.0 NG/ML Troponin I < 0.028 <0.028 NG/ML Total Protein 7.1 6.4-8.2 GM/DL Albumin 3.9 3.2-4.5 GM/DL Lipase 18 8-78 U/L Serum Test, Qualitative NEGATIVE NEGATIVE My Orders Orders - ELMA DAVE MD Ekg Tracing (09/27/22 06:50) Ondansetron Oral Dissolve Tab (Zofran (09/27/22 06:54) Lidocaine 2% Viscous 15 Ml (Xylocaine Vi (09/27/22 07:00) Antacid Suspension (Mylanta Suspension (09/27/22 07:00) Chest 1 View, Ap/Pa Only (09/27/22 06:54) Cbc With Automated Diff (09/27/22 08:40) Magnesium (09/27/22 08:40) Comprehensive Metabolic Panel (09/27/22 08:40) Myoglobin Serum (09/27/22 08:40) Protime With Inr (09/27/22 08:40) Partial Thromboplastin Time (09/27/22 08:40) O2 (09/27/22 08:40) Monitor-Rhythm Ecg Trace Only (09/27/22 08:40) Ed Iv/Invasive Line Start (09/27/22 08:40) Lipase (09/27/22 08:40) Troponin I [place] (09/27/22 08:40) Fibrin Degradation Products (09/27/22 08:40) Hcg,Qualitative Serum (09/27/22 08:40) Ketorolac Injection (Toradol Injection) (09/27/22 11:15) Medications Given in ED Vital Signs/I&O 09/27/22 09/27/22 06:46 11: Temp 36.7 Pulse 89 81 Resp 20 18 B/P (MAP) 164/97 (119) 127/66 Pulse Ox 97 98 O2 Delivery Room Air Blood Pressure Mean: 119 Progress Progress Note #1: Time: 07:27 Progress Note Patient has received Zofran and a GI cocktail as trial therapy. The rest of her work-up will be pending her response to this treatment. EKG was unremarkable. Progress Note #2: Time: 08:38 Progress Note Patient describes only very slight improvement in chest pain and no improvement in the back pain after GI cocktail and Zofran. I discussed options for further work-up. Patient would like to do more to help explain her pain and rule out other causes. Labs will be obtained for further evaluation. She again denies any cough, fever, headache, myalgia, or sore throat to suggest acute viral illness. On repeat examination she again demonstrates no abdominal pain or tenderness. 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 The mid and lower thoracic back is generally tender without a point of focal tenderness. She does note pain with deep inspiration. Progress Note #3: Progress Note Additional work-up was relatively unremarkable. D-dimer was minimally elevated. I discussed this with the patient. With shared decision-making we determined that this very minimal elevation did no warrant exposure to radiation and contrast for CTA. Patient was not hypoxic or tachycardic. Toradol was given for pain control. See discharge instruction for further discussion. Initial ECG Impression Date: Sep 27, 2022 Initial ECG Impression Time: 06:57 Initial ECG Rate: 81 Initial ECG Rhythm: Normal Sinus Initial ECG Intervals: Normal Initial ECG Impression: Normal Comment Normal sinus rhythm with no ST elevation or depression. No abnormal intervals or axis deviation. Diagnostic Imaging Diagonstic Imaging: Xray Plain Films/CT/US/NM/MRI: chest Comments Chest x-ray viewed by me and report reviewed. See report below: NAME: ZENAIDA DUFF MED REC#: [id number] PT STATUS: REG ER : 2000 PHYSICIAN: ELMA DAVE MD ADMIT DATE: 09/27/22/ER Signed Date of Exam:09/27/22 CHEST 1 VIEW, AP/PA ONLY EXAMINATION: Chest radiograph, portable AP view. DATE: 09/27/2022 7:19 AM INDICATION: 22-year-old female, shortness of breath, chest pain. COMPARISON: February 26, 2022. FINDINGS: Heart size and mediastinal contours are unchanged. There are technical limitations of the study relating to patient body habitus and difficulties with exposure. There is no identified pneumothorax. There is no large pleural effusion. There is no identified focal airspace consolidation. IMPRESSION: 1. Technically limited study relating to patient body habitus and difficulties with exposure. 2. No identified acute cardiopulmonary abnormality. Dictated by: Dictated on workstation # [id number] Dict: 09/27/22721 Trans: 09/27/22801 CV [id number] Interpreted by: ROSITA CROCKER MD Electronically signed by: ROSITA CROCKER MD 09/27/22801 Departure Impression Primary Impression: Atypical chest pain Additional Impression: Upper back pain Disposition: 01 HOME, SELF-CARE Condition: Improved Departure-Patient Inst. Decision time for Depature: 11:15 Referrals: NO,LOCAL PHYSICIAN (PCP/Family) Primary Care Physician Patient Instructions: Chest Pain That Is Not Caused by the Heart (DC), Upper Back Pain Add. Discharge Instructions: You may take Tylenol (acetaminophen) up to 1000 mg every 6 hours as needed. Avoid NSAID medications such as ibuprofen or naproxen as they may cause worsening of acid reflux and stomach irritation. The exact cause of your pain is uncertain but possible contributing factors may include acid reflux and musculoskeletal pain. To help prevent problems with acid reflux avoid the following: Eating large meals, eating close to bedtime, caffeine, carbonation, chocolate, citrus fruits and juices, tomato products, mints, alcohol, tobacco, vaping, NSAID medications such as ibuprofen or naproxen, spicy foods, fatty/greasy foods, and anything else that you know irritates your stomach. Also sleeping with your head elevated can reduce acid reflux. You may take an antacid medication such as omeprazole 20 mg daily or Pepcid (famotidine) 20 mg twice daily. Continue this for about a month to allow your stomach and esophagus time to heal. Focusing on weight reduction and core body strengthening can help with both musculoskeletal pain and acid reflux. You may try the muscle relaxer prescribed at night to help your back muscles relax. Follow-up with your primary care provider for further evaluation of these problems if they persist. All discharge instructions reviewed with patient and/or family. Voiced understanding. Scripts Cyclobenzaprine HCl (Cyclobenzaprine HCl) 10 Mg Tablet 10 MG PO HS PRN for SPASMS, #10 TAB 0 Refills Prov: ELMA DAVE MD 09/27/22 ELMA DAVE MD Sep 27, 2022 07:21
--- NOTE | 2022-09-27 07:25 | Diagnostic Imaging Report ---
EXAMINATION: Chest radiograph, portable AP view. DATE: 09/27/2022 7:19 AM INDICATION: 22-year-old female, shortness of breath, chest pain. COMPARISON: February 26, 2022. FINDINGS: Heart size and mediastinal contours are unchanged. There are technical limitations of the study relating to patient body habitus and difficulties with exposure. There is no identified pneumothorax. There is no large pleural effusion. There is no identified focal airspace consolidation. IMPRESSION: 1. Technically limited study relating to patient body habitus and difficulties with exposure. 2. No identified acute cardiopulmonary abnormality. Dictated by: Dictated on workstation # [id number]
[2022-09-27 09:02] LABS: BASOPHILS # (AUTO) 0.1 10^3/uL (0.0-0.1); BASOPHILS % (AUTO) 1 % (0-10); EOSINOPHILS # (AUTO) 0.2 10^3/uL (0.0-0.3); EOSINOPHILS % (AUTO) 3 % (0-10); HEMATOCRIT 36 % (35-52); HEMOGLOBIN 11.7 g/dL (11.5-16.0); LYMPHOCYTES # (AUTO) 2.9 10^3/uL (1.0-4.0); LYMPHOCYTES % (AUTO) 37 % (12-44); MEAN CORPUSCULAR HEMOGLOBIN 26 pg (25-34); MEAN CORPUSCULAR HGB CONC 32 g/dL (32-36); MEAN CORPUSCULAR VOLUME 81 fL (80-99); MEAN PLATELET VOLUME 9.4 fL (9.0-12.2); MONOCYTES # (AUTO) 0.7 10^3/uL (0.0-1.0); MONOCYTES % (AUTO) 8 % (0-12); NEUTROPHILS % (AUTO) 51 % (42-75); PLATELET COUNT 350 10^3/uL (130-400); WHITE BLOOD COUNT 7.8 10^3/uL (4.3-11.0)
[2022-09-27 09:14] LABS: PROTHROMBIN TIME PATIENT 13.2 SEC (12.2-14.7)
[2022-09-27 09:22] LABS: ALBUMIN 3.9 GM/DL (3.2-4.5); BILIRUBIN,TOTAL 0.2 MG/DL (0.1-1.0); CALCIUM 9.3 MG/DL (8.5-10.1); CREATININE SERUM 0.65 MG/DL (0.60-1.30); MAGNESIUM 1.7 MG/DL (1.6-2.4); POTASSIUM 3.5 MMOL/L (3.6-5.0); TOTAL PROTEIN 7.1 GM/DL (6.4-8.2)
[2022-09-27] MEDS ORDERED: KETOROLAC 30 MG/ML VIAL IVP ONE (11:15)
[2022-09-27] MEDS ORDERED: CYCL10TA25 PO (11:19)
[2022-09-27 11:28] VITALS: BP 127/66
== END 2022-09-27 11:28 | disposition home or self-care (01) ==
LOC: EDUNIT# 06:40 → ER 06:41
DX: R07.89 Other chest pain (principal); M54.6 Pain in thoracic spine; R79.1 Abnormal coagulation profile; E66.9 Obesity, unspecified; F17.290 Nicotine dependence, other tobacco product, uncomplicated; Z68.43 Body mass index [BMI] 50.0-59.9, adult
CPT/HCPCS: 36415; 71045; 80053; 83690; 83735; 83874; 84484; 84703; 85025; 85379; 85610; 85730; 93005; 93041